=== PATIENT | male | born 1980 | race Caucasian/White ===

== ENCOUNTER 2021-02-24 10:50 | Outpatient (CLI) | payer OTHER ==
--- NOTE | 2021-02-24 12:04 | SLEEP CARE CONSULTATION ---
Information from patient questionnaire entered by Prosper Diane MA. I have reviewed and concur with the information entered by Prosper Diane MA. This document represents the service I personally performed and the decisions made by me, Nicki Andersen ARNP. History of Present Illness Service Date and Time: 02/24/2021 1050 Reason for Visit: New patient Chief Complaint: reports: Unrefreshed sleep, Snoring, Excessive daytime sleepiness, Fatigue, Frequent awakenings at night Date of Onset: 7 years (2013) Usual bedtime: 0 - 0 Time it takes to fall asleep: 15 to 20 minutes sometimes immediately Snores at night: Yes Observed to quit breathing while asleep: Yes Sleeps alone due to snoring: No Number of times waking at night: 2 - 3 Reasons for waking at night: reports: Snoring, Bathroom, Other (unknown) Toss, Turn, or Twitch while sleeping: Yes Recalls having dreams: Yes Usually gets out of bed at: 0500; weekends to 0700 Feels refreshed in the morning: No Morning headache: No Sleepy or fatigued during the day: Yes Ever fallen asleep while driving: Yes (drowsy driving, no accidents) Takes day naps: No Dreams during day naps: No Prior sleep studies: Yes Year and Where: 2013 ? [facility] Additional HPI information: I had the pleasure of seeing ALBA PRIETO today regarding the possibility of him having a sleep disorder. His current complaints are unrefreshed sleep, snoring, fatigue, excessive daytime sleepiness and frequent night awakenings. Patient had a previous study in 2012 which was negative. He states he did a HST and his did not hear any snoring that night. He slept really well that night. He also states he was in very good health. He states that he is more tired in the mornings than he was at his last study in 2012. He has also gained about 25 pound since the last study and is the heaviest he has ever been. His snoring is getting worse and is very loud. His nudges him at night to get h im to stop snoring. She still sleeps in same bed. He has woke himself up snoring. His has never told him that he has any pauses in breathing when sleeping. He denies waking up choking or gasping for air. He denies morning headaches. He does have difficulty with forgetfulness, has a hard time remembering names of people he has met. His father snored very loud when he was a kid but he was never evaluated as far as he knows. 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 Patient is and lives in [place]. Have you smoked in the past 12 months: No Cigarettes per day (20/pack): 10 Years of smokin Smoking Pack Years: 10.0 Alcohol use: Yes Alcohol amount and frequency: 1 - 2 , 2-3x/week Caffeine use: Yes Caffeine amount and frequency: 2 - 3 cups/day Family History Family history of sleep disordered breathing: Yes Family Hx Sleep Apnea: Father: Snoring Allergies and Home Medications Known drug allergies: No Drug allergies reviewed: Yes (NKDA) Home medication list reviewed: Yes Allergy and home medication list: Citalopram Omeprazole Aleve, prn Review of Systems Weight gain over past 5 years: 10 Cardiovascular: denies: high blood pressure Gastrointestinal: reports: heartburn Neurological: denies: headaches Psychiatric: reports: anxiety, depression, other (ptsd) Ear/Nose/Throat: reports: wisdom teeth removed. denies: injury to nose, tonsillectomy Musculoskeletal: reports: joint pain Immunologic: denies: allergies to food or environment Physical Exam Vital signs obtained and entered by: Shannon Diane CMA Blood Pressure: 111/80 (left) Cuff size: wrist Heart Rate: 80 O2 Saturation: 98 Height: 5 ft 11 in Weight: 205 lb 15.162 oz (with boots) Body Mass Index: 28.7 BMI Classification: Overweight Neck circumference: 17 (inches) Nostrils: patent to airflow Mouth and throat: narrow oropharynx Soft palate: long Hard palate: arched Uvula: normal Uvula visualization: 50% Mallampati Class II Tongue: enlarged in size with teeth kingsley on lateral edges Tonsils: 1+ Neck: normal w/o lymphadenopathy or thyromegaly Heart: regular rate and rhythm Lungs: clear bilaterally Impression and Plan 1. Suspected Obstructive Sleep Apnea-Hypopnea Syndrome, as suggested by a history of loud and irregular snoring, frequent awakening during the night, unrefreshed sleep, cognitive impairment, and excessive daytime sleepiness. I recommend proceeding to polysomnography to confirm the diagnosis and to assess severity. If the patient has significant sleep disordered breathing, a manual CPAP titration study will also be performed to find the optimal treatment pressure. I informed the patient of what the sleep studies involve and after some discussion, obtained agreement to proceed. The pathophysiology of obstructive sleep apnea-hypopnea syndrome was discussed with the patient and health risks of cardiovascular and cerebrovascular disease if not treated. 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 Patient agreed to plan. * Schedule polysomnography +- manual CPAP titration study and return in 1-2 weeks after the study to discuss result and initiate therapy. * Avoid long distance driving or driving when feeling sleepy. * Avoid alcohol, sedative and muscle relaxant around bedtime. * Attempt to lose weight. * Review instructions provided by trained office staff on how to prepare for the sleep study. * Return for follow-up after sleep study completed. Counseling Topics: Weight loss health impact Visit Type: In Office Time Spent with Patient (minutes): 30 Provider Statement: I spent 100% of the Face to Face Visit with the patient with greater than 50% spent counseling the patient and coordination of care.
[2021-02-24 12:05] VITALS: BP 111/80
== END 2021-02-24 10:51 | disposition home or self-care (01) ==
LOC: SC 10:50
PROVIDERS: ATTEND Nurse Practitioner Family
DX: R06.83 Snoring (principal); G47.8 Other sleep disorders; R41.89 Other symptoms and signs involving cognitive functions and awareness; G47.10 Hypersomnia, unspecified
CPT/HCPCS: 99203; 99212

== ENCOUNTER 2021-05-07 20:28 | Outpatient (CLI) | payer OTHER | END 2021-05-07 20:29 | disposition home or self-care (01) | LOC: SC 20:28 | PROVIDERS: ATTEND Nurse Practitioner Family | DX: F32.A Depression, unspecified (principal); G47.33 Obstructive sleep apnea (adult) (pediatric) | CPT/HCPCS: 95810 ==

== ENCOUNTER 2021-05-22 13:45 | Outpatient (CLI) | payer OTHER ==
[2021-05-22 14:15] VITALS: BP 138/82
--- NOTE | 2021-05-22 14:15 | SLEEP CARE CONSULTATION ---
Information from patient questionnaire entered by Prosper Diane MA. I have reviewed and concur with the information entered by Prosper Diane MA. This document represents the service I personally performed and the decisions made by , Nicki Andersen ARNP. History of Present Illness Service Date and Time: 05/22/2021 1345 Initial [place] Sleepiness Scale score: 10 (2020) Current [place] Sleepiness Scale score: 11 Additional HPI information: ALBA PRIETO returns for follow up and results of the recently performed polysomnography. I explained the pathophysiology behind obstructive sleep apnea. We then spent quite a bit of time discussing different treatment options. For mild obstructive sleep apnea, surgery and oral appliance are alternatives to nasal CPAP therapy but in moderate or severe cases, nasal CPAP is the most effective and reliable treatment. Because apnea is primarily in supine position, then positional management therapy could be effective. Methods discussed such as positioning with pillows to prevent supine sleep. I reviewed the impact of weight changes on sleep apnea and strongly recommended losing weight. After some discussion, the patient opted to go with the nasal CPAP therapy. Nasal autoCPAP set at 4-15 cmH20 will be ordered with rationale explained. A manual titration study will be ordered if unable to find optimal pressure with office adjustments. I explained how CPAP machine works and what to expect when using the machine. Using CPAP every night in order to get used to it was emphasized. Patient advised to put CPAP mask on before getting into bed so as not to fall asleep wit hout CPAP. To assist acclimation to CPAP use, it could also be used for a short time during day while reading or watching TV. The patient was instructed to call the CPAP supplier to discuss any mechanical problem that may occur. If the mask given is uncomfortable or is difficult to keep on through the night even with adjustment, contact the CPAP supplier as many will replace with another mask sty le if notified before 30 days. If snoring or perceives is not getting enough air or too much air from the machine, notify this office. AASM patient education PAP tips reviewed and given to patient. Patient was cautioned about risks of drowsy driving until sleepiness symptoms resolve. Sleep Study - Results Type of Sleep Study: Polysomnography Prior sleep studies: Yes Year and Where: 2013 ? [facility] Polysomnography/Home Sleep Study results: IMPRESSION: The quality of the study is good. The patient had normal sleep efficiency. The sleep architecture was normal as well. Respiratory monitoring showed mild obstructive sleep apnea- hypopnea (AHI = 7.1) associated with oxyhemoglobin desaturation and mild hypoxia (lydia oxygen saturation of 84%). The respiratory events occurred almost exclusively during supine sleep (supine AHI = 8.6; non-supine = 3.12). Snore was light to loud in intensity. There was no significant periodic leg movement of sleep. Cardiac rhythm was normal sinus rhythm without significant arrhythmia. No abnormal behavior (parasomnia) observed during the night. Allergies and Home Medications Home medication list reviewed: Yes (no changes) Review of Systems Review of systems same as previous: Yes (no changes) Physical Exam Vital signs obtained and entered by: STEPHANIE CASTREJON Blood Pressure: 138/82 Cuff size: wrist Heart Rate: 69 O2 Saturation: 96 Height: 5 ft 11 in Weight: 205 lb Body Mass Index: 28.5 BMI Classification: Overweight Impression and Plan 1. Obstructive Sleep Apnea-Hypopnea Syndrome, mild, with lowest oxygen saturation of 84%. Obviously this is the cause of the patients symptoms of unrefreshed sleep, and excessive daytime sleepiness. Positive pressure therapy could benefit anxiety, depression, gastric reflux and mood disorder (PTSD). As mentioned above, the patient will be started on nasal autoCPAP therapy with pressure set at 4-15 cmH2O. Compliance guidelines also reviewed. A copy of compliance guidelines will be given for reference at check out. Because the apnea is more severe supine, I instructed to avoid sleeping supine using pillow positioning until able to start CPAP use. * Nasal auto CPAP therapy, pressure at 4-15 cm H2O. * Attempt to lose weight. * Avoid alcohol consumption near bedtime. * Avoid supine sleep until using CPAP. * The patient is again cautioned about driving until sleepiness completely resolves. * Return one month after CPAP obtained. I will assess response to therapy and compliance at that time. Counseling Topics: Weight loss health impact Visit Type: In Office Time Spent with Patient (minutes): 20 Provider Statement: I spent 100% of the Face to Face Visit with the patient with greater than 50% spent counseling the patient and coordination of care.
== END 2021-05-22 13:46 | disposition home or self-care (01) ==
LOC: SC 13:45
PROVIDERS: ATTEND Nurse Practitioner Family
DX: G47.33 Obstructive sleep apnea (adult) (pediatric) (principal)
CPT/HCPCS: 99212; 99213

== ENCOUNTER 2021-05-28 09:19 | Outpatient (CLI) | payer OTHER ==
--- NOTE | 2021-05-28 16:49 | MRI Report ---
PROCEDURE: Shoulder RT W/O INDICATIONS: PAIN IN RIGHT SHOULDER TECHNIQUE: Noncontrast oblique coronal T2 fast spin echo with fat saturation, oblique sagittal T1 spin echo and T2 fast spin echo with fat saturation, axial T1 spin echo and T2 fast spin echo with fat saturation t hrough the shoulder. COMPARISON: None. Findings: Supraspinatus: Mild tendinopathy with small articular surface tear of the humeral attachment. Infraspinatus: Mild tendinopathy with interstitial tear. Subscapularis: No evidence of tear. Teres minor: No evidence of tear. Labrum: No evidence of tear. Biceps tendon: No evidence of subluxation or tear. Acromioclavicular joint: Normal alignment. Minimal T2 hyperintense signal within the articulation. Muscle: No significant atrophy. Bones: No significant abnormality. Specifically, no evidence of fracture, contusion, or necrosis. Miscellaneous: Small amount of fluid in the superior subscapular recess. Trace subacromial bursal fluid. Intact coracoclavicular ligament. IMPRESSION: 1. Mild supraspinatus tendinopathy with small articular surface tear. 2. Mild infraspinatus tendinopathy with interstitial tear. 3. Small amount of fluid in the superior subscapular recess. Differential considerations include join t fluid, ganglion, or paralabral cyst. 4. Trace subacromial bursitis. Reviewed by: Florin Butler MD on 05/28/2021 4:48 PM PST Approved by: Florin Butler MD on 05/28/2021 4:48 PM [facility] Station ID: [id number]
== END 2021-05-28 09:20 | disposition home or self-care (01) ==
LOC: DI 09:19
PROVIDERS: ATTEND Pediatrics
DX: M75.111 Incomplete rotator cuff tear or rupture of right shoulder, not specified as traumatic (principal); M25.411 Effusion, right shoulder; M75.51 Bursitis of right shoulder

== ENCOUNTER 2021-06-22 08:00 | Outpatient (CLI) | payer OTHER ==
--- NOTE | 2021-06-22 15:42 | XRAY Report ---
PROCEDURE: Finger(s) LT INDICATIONS: CONTUSION OF L MIDDLE FINGER TECHNIQUE: AP hand, 2 views of the third finger(s) acquired. COMPARISON: None FINDINGS: Bones: No fractures or dislocations. No suspicious bony lesions. Soft tissues: No suspicious soft tissue calcifications. IMPRESSION: No fracture or dislocation is seen in third finger. Reviewed by: Josiah Ivy MD on 06/22/2021 3:41 PM PST Approved by: Josiah Ivy MD on 06/22/2021 3:41 PM PST Station ID: [id number]
== END 2021-06-22 23:59 ==
LOC: DI.N 08:00
PROVIDERS: ATTEND Nurse Practitioner
DX: S60.032A Contusion of left middle finger without damage to nail, initial encounter (principal)

== ENCOUNTER 2021-07-28 12:44 | Outpatient (CLI) | payer OTHER ==
[2021-07-28 13:26] VITALS: BP 135/46
--- NOTE | 2021-07-28 13:26 | SLEEP CARE CONSULTATION ---
Information from patient questionnaire entered by Prosper Diane MA. I have reviewed and concur with the information entered by Prosper Diane MA. This document represents the service I personally performed and the decisions made by , Nicki Andersen ARNP. History of Present Illness Service Date and Time: 07/28/2021 1244 Previous diagnosis: Mild, Obstructive Sleep Apnea-Hypopnea Syndrome AHI: 7.1 (in 2021) Reason for follow up: first compliance (set up date 06/24/21, RESMED, ) Equipment type: CPAP Equipment obtained from: [employer] (got initial supplies) Mask style: Full face (F30) Mask brand: Resmed Backup mask available: No (will keep old mask when replaced) Last cushion change: 1 month Prior sleep studies: Yes Year and Where: 2013 ? [facility] Type of Sleep Study: Polysomnography HPI additional information: ALBA PRIETO was diagnosed to have mild, AHI 8.1, obstructive sleep apnea- hypopnea syndrome and returned today for CPAP therapy first compliance follow- up. Sleep Study - Results Type of Sleep Study: Polysomnography Prior sleep studies: Yes Year and Where: 2013 ? [facility] CPAP Compliance Data - Data Reviewed with Patient Average duration of nightly device use: 6 HOURS 17 MINUTES Compliance rate %: 93 Current pressure setting (cmH2O): 4-15 (median 8.1, avg 11.1, max 12.3) Average residual AHI: 2.8 Central apnea: .9 Obstructive apnea: .9 Average large leak: 12.9 Subjective Patient concerns: denies: aerophagia, mask discomfort, air blowing in eyes, mask leak noise, condensation in mask/hose, nasal congestion, dry mouth, nose, throat, epistaxis, other Observed to snore while using device: No Current pressure setting perceived as: comfortable On therapy, patient: reports: sleeping better, awakening more refreshed, being more awake and alert during the day, more rested overall. denies: drowsiness while driving Initial [place] Sleepiness Scale score: 10 (2020) Current [place] Sleepiness Scale score: 6 Allergies and Home Medications Home medication list reviewed: Yes (no changes) Review of Systems Review of systems same as previous: Yes (no changes) Physical Exam Vital signs obtained and entered by: STEPHANIE CASTREJON Blood Pressure: 135/46 (PULSE 80, RSP 16, RIGHT, ) Heart Rate: 80 O2 Saturation: 95 (PAPER) Height: 5 ft 11 in Weight: 195 lb Body Mass Index: 27.1 BMI Classification: Overweight Impression and Plan 1. Obstructive Sleep Apnea-Hypopnea Syndrome, mild, with good treatment compliance and good apnea control. On CPAP therapy, the patient has better sleep quality and is more rested overall. The patients pressure will be changed to autoCPAP 11-13 cmH20 to reflect those pressures being utilized. Patient advised to contact me if pressure change is uncomfortable so that it can be adjusted. Goals for apnea control discussed. Patient's apnea severity and rationale for treatment to reduce apnea, improve sleep quality and reduce cardiovascular and cerebrovascular events was reviewed. I also reviewed the benefit of consistent device use of CPAP for gastric reflux, depression, anxiety, and mood disorder (PTSD). Patient's BMI 27.1 today. He was encouraged to maintain a healthy weight. 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 We will follow up with him at next visit and if he is doing well he may be able to follow up yearly subsequently. We will determine this at next visit. * Change auto CPAP pressure to 11-13 cmH2O * Notify me if snoring with mask or feeling that the pressure is too much or too little * Attempt to lose weight * Call this office if any problems using CPAP * Return for follow up in 1-2 months, or sooner if concerns arise Counseling Topics: Spare mask, Weight loss health impact Visit Type: In Office Time Spent with Patient (minutes): 20 Provider Statement: I spent 100% of the Face to Face Visit with the patient with greater than 50% spent counseling the patient and coordination of care.
== END 2021-07-28 12:45 | disposition home or self-care (01) ==
LOC: SC 12:44
PROVIDERS: ATTEND Nurse Practitioner Family
DX: G47.33 Obstructive sleep apnea (adult) (pediatric) (principal); E66.3 Overweight; Z68.27 Body mass index [BMI] 27.0-27.9, adult
CPT/HCPCS: 99212; 99213

== ENCOUNTER 2021-09-15 12:47 | Outpatient (CLI) | payer OTHER ==
[2021-09-15 13:22] VITALS: BP 131/95
--- NOTE | 2021-09-15 13:22 | SLEEP CARE CONSULTATION ---
Information from patient questionnaire entered by Prosper Diane MA. I have reviewed and concur with the information entered by Prosper Diane MA. This document represents the service I personally performed and the decisions made by , Nicki Andersen ARNP. History of Present Illness Service Date and Time: 09/15/2021 1247 Previous diagnosis: Mild, Obstructive Sleep Apnea-Hypopnea Syndrome AHI: 7.1 (in 2021) Reason for follow up: other (7 week f/u with pressure change) Equipment type: CPAP Equipment obtained from: [employer] (got initial supplies) Mask style: Full face (F30) Backup mask available: Yes (old mask) Last cushion change: 2-3 weeks ago Prior sleep studies: Yes Year and Where: 2013 ? [facility] Type of Sleep Study: Polysomnography HPI additional information: ALBA PRIETO was diagnosed to have mild, AHI 7.1, obstructive sleep apnea- hypopnea syndrome and returned today for CPAP therapy 7 week with pressure change follow-up. Sleep Study - Results Type of Sleep Study: Polysomnography Prior sleep studies: Yes Year and Where: 2013 ? [facility] CPAP Compliance Data - Data Reviewed with Patient Average duration of nightly device use: 7 HOURS 2 MINUTES Compliance rate %: 100 Current pressure setting (cmH2O): 10-11 Average residual AHI: 2.6 Central apnea: .6 Obstructive apnea: 1.4 Average large leak: 22.3 Subjective Patient concerns: denies: aerophagia, mask discomfort, air blowing in eyes, mask leak noise, condensation in mask/hose, nasal congestion, dry mouth, nose, throat, epistaxis, other Observed to snore while using device: No Current pressure setting perceived as: comfortable On therapy, patient: reports: sleeping better, awakening more refreshed, being more awake and alert during the day, more rested overall. denies: drowsiness while driving Initial [place] Sleepiness Scale score: 10 (2020) Current [place] Sleepiness Scale score: 9 (08/2021) Allergies and Home Medications Known drug allergies: No Drug allergies reviewed: Yes Home medication list reviewed: Yes (no changes) Review of Systems Review of systems same as previous: Yes (no changes) Physical Exam Vital signs obtained and entered by: STEPHANIE CASTREJON Blood Pressure: 131/95 (RESP 16, PULSE 68, RIGHT) Cuff size: wrist Heart Rate: 77 O2 Saturation: 96 (PAPER MASK) Height: 5 ft 11 in Weight: 205 lb (CLOTHES) Body Mass Index: 28.5 BMI Classification: Overweight Impression and Plan 1. Obstructive Sleep Apnea-Hypopnea Syndrome, mild, with excellent treatment compliance and good apnea control. On CPAP therapy, the patient has better sleep quality and is more rested overall. He states the last pressure change has been comfortable. He can now maintain his mask with a good seal and is not trying to blow off his face. He can also see that he is having reduced AHI. Patient's apnea severity and rationale for treatment to reduce apnea, improve sleep quality and reduce cardiovascular and cerebrovascular events was reviewed. I also reviewed the benefit of consistent device use of CPAP for gastric reflux, depression, anxiety and mood disorder (PTSD). Patient is moving, leaving this area. I encouraged him to follow-up in 3 to 6 months with a sleep provider wherever he ends up. He voiced understanding and agreement with plan. * Continue auto CPAP pressure at 10-11 cmH2O * Call this office if any problems using CPAP * Return for follow up in 3-6 months, or sooner if concerns arise Counseling Topics: Spare mask, Weight loss health impact Visit Type: In Office Time Spent with Patient (minutes): 14 Provider Statement: I spent 100% of the Face to Face Visit with the patient with greater than 50% spent counseling the patient and coordination of care.
== END 2021-09-15 12:48 | disposition home or self-care (01) ==
LOC: SC 12:47
PROVIDERS: ATTEND Nurse Practitioner Family
DX: G47.33 Obstructive sleep apnea (adult) (pediatric) (principal)
CPT/HCPCS: 99212